=== PATIENT | male | born 1955 | race African-American/Black ===

== ENCOUNTER 2024-03-13 18:49 | Inpatient (IN) | payer OTHER, MEDICARE ==
[2024-03-13 20:27] VITALS: BMI 21.3
[2024-03-13 21:43] LABS: Troponin I 0.164 ng/mL (< 0.028)
[2024-03-13] MEDS ORDERED: Ondansetron ODT 4 MG TAB PO PRN (22:19)
[2024-03-13] MEDS ORDERED: Ondansetron PF 4 MG/2 ML Vial IVP PRN (22:19)
[2024-03-13] MEDS ORDERED: Acetaminophen 325 MG TAB PO PRN (22:19)
[2024-03-13] MEDS ORDERED: Nitroglycerin 0.4 MG TAB (25 Tab Bottle) SL PRN (22:19)
[2024-03-13] MEDS ORDERED: Vancomycin Diaylsis Sliding Scale (Wt 71-99) FS SCH (23:00)
[2024-03-14 00:32] LABS: #Basophils 0.03 10x3/uL (0.0-0.2); %Basophils 0.3 % (0.0-1.0); %Eosinophils 1.4 % (0.0-10.0); %Lymphocytes 22.1 % (21.0-51.0); %Monocytes 9.8 % (0.0-10.0); %Neutrophils 66.1 % (42.0-75.0); Hematocrit 35.3 % (42.0-52.0); Mean Corpuscular Volume 88.3 fL (78.0-98.0); Mean Platelet Volume 11.4 fL (7.4-10.4); Platelet Count 194 10x3/uL (130-400); RBC Distribution Width 15.5 % (11.5-14.5)
[2024-03-14 00:44] LABS: A1c 89.411 g/dL; Hb (HGBA1c) 3074.409 umol/L; Hemoglobin A1c 4.8 % (4.0-6.0)
[2024-03-14 00:47] LABS: Anion Gap 20 mmol/L (10-20); BUN (Urea Nitrogen) 22 mg/dL (8.4-25.7); Calc. Creatinine Clearance 8 mL/min (70-130); Calcium 10.3 mg/dL (7.8-10.44); Carbon Dioxide 23 mmol/L (23-31); Cardiac Risk 3.5 (Less than 4.5); Chloride 94 mmol/L (98-107); Cholesterol 142 mg/dl (< 200 Desired); Estimated GFR 6; Glucose 86 mg/dL (80-115); HDL Cholesterol 41 mg/dL (>60 Neg Risk); LDL Cholesterol, Calculated 84 mg/dL; Potassium 4.3 mmol/L (3.5-5.1); Sodium 133 mmol/L (136-145); Triglycerides 83 mg/dL (Less than 150)
[2024-03-14] MEDS: Lorazepam 2 MG/ML VIAL SLOW IVP SCH (01:35)
[2024-03-14 05:14] LABS: Troponin I 0.223 ng/mL (< 0.028)
[2024-03-14] MEDS: Famotidine 20 MG TAB PO SCH (08:21)
[2024-03-14] MEDS ORDERED: Vancomycin 1 GM in Premix 1 BAG IVPB SCH (09:00)
[2024-03-14] MEDS ORDERED: Aspirin 81 mg Enteric Coated Tablet PO SCH (09:00)
[2024-03-14] MEDS: Aspirin Chewable 81 MG TAB PO SCH (09:02)
[2024-03-14] MEDS: Heparin 5,000 UNITS/ML VIAL SC SCH (09:02)
[2024-03-14] MEDS: Famotidine/PF 20 mg/2ml Vial SLOW IVP SCH (09:02)
[2024-03-14] MEDS: hydrALAZINE 20 MG/ML VIAL SLOW IVP PRN (10:38)
[2024-03-14 12:38] LABS: HBSAB Concentration 29.92 mIU/mL; HBsAg Index 0.29 S/CO (0-0.99); Hep B Core Total Ab NONREACTIVE (NonReactive); Hep B Core Total Index 0.13 S/CO (0-0.79); Hep B Surf AB REACTIVE (NonReactive); Hep B Surf Ag NONREACTIVE S/CO (NonReactive); Hep C IgG Ab NONREACTIVE S/CO (NonReactive); Hep C Index 0.07 S/CO (0-0.79)
[2024-03-14 14:38] LABS: Critical Call Chem Troponin I 2NO.MM4; Troponin I 0.255 ng/mL (< 0.028)
[2024-03-14] MEDS: Acetaminophen 650 MG Suppository PR PRN (14:43)
[2024-03-14] MEDS: Cefepime 1 GM in Sodium Chloride 0.9% 100 ML IVPB SCH (14:43)
[2024-03-14] MEDS: Metoprolol Tartrate 5 MG (5 mL) VIAL IVP SCH ×2 (18:27→22:32)
[2024-03-14] MEDS: Atorvastatin Calcium 40 MG TAB PO SCH (22:03)
[2024-03-14] MEDS: Ketorolac Tromethamine 30 MG (1 mL) VIAL IVP SCH (23:17)
[2024-03-14] MEDS: Sodium Chloride 0.9% 500 ML IV SCH (23:18)
[2024-03-15] MEDS: Labetalol HCl 100 MG/20 ML VIAL SLOW IVP PRN (02:07)
[2024-03-15 05:07] LABS: Anion Gap 24 mmol/L (10-20); BUN (Urea Nitrogen) 41 mg/dL (8.4-25.7); Calc. Creatinine Clearance 6 mL/min (70-130); Calcium 9.8 mg/dL (7.8-10.44); Carbon Dioxide 20 mmol/L (23-31); Chloride 97 mmol/L (98-107); Estimated GFR 4; Glucose 83 mg/dL (80-115); Potassium 4.6 mmol/L (3.5-5.1); Sodium 136 mmol/L (136-145)
[2024-03-15 05:08] LABS: CRP,High Sensitivity (Inhouse) 10.38 mg/dL (< or = 0.5)
[2024-03-15 05:10] LABS: Hematocrit 33.4 % (42.0-52.0); Hemoglobin 11.6 g/dL (14.0-18.0); Mean Corpuscular HGB CONC 34.7 g/dL (32.0-36.0); Mean Corpuscular Hemoglobin 29.7 pg (27.0-31.0); Mean Corpuscular Volume 85.4 fL (78.0-98.0); Mean Platelet Volume 12.4 fL (7.4-10.4); Platelet Count 134 10x3/uL (130-400); RBC Distribution Width 15.6 % (11.5-14.5); Red Blood Cell (RBC) Count 3.91 mill/uL (4.70-6.10)
[2024-03-15 05:27] LABS: Anisocytosis MARKED = >30 cells HPF (0-5); Band 2 % (5-11); Lymphocytes 20 % (21-51); Macrocytosis MODERATE=16-30 cells HPF (0-5); Monocytes 15 % (0-10); Neutrophil 63 % (42-75); Ovalocytes SLIGHT = 2-5 cells HPF (0-1); Platelet Adequacy Comment Platelets Normal; Polychromasia SLIGHT = 2-3 cells HPF (0-2); Schistocytes SLIGHT = 2-5 cells HPF (0-1); Vacuoles MODERATE
[2024-03-15] MEDS: Famotidine 20 MG TAB PO SCH (09:41)
[2024-03-15] MEDS: Famotidine/PF 20 mg/2ml Vial SLOW IVP SCH (09:44)
[2024-03-15] MEDS: cloNIDine 0.2mg/24 Hour PATCH TD SCH (09:45)
[2024-03-15 10:12] VITALS: BMI 21.3
[2024-03-15 11:00] LABS: Vancomycin, Trough 15.7 ug/mL
[2024-03-15] MEDS: Nitroglycerin 2% Ointment 1 INCH/1 GM Packet TOP SCH (18:16)
[2024-03-15] MEDS: Cefepime 1 GM in Sodium Chloride 0.9% 100 ML IVPB SCH (18:23)
[2024-03-15] MEDS: Vancomycin HCl 750 MG in Sodium Chloride 0.9% 250 ML 250 ML IVPB SCH (21:16)
[2024-03-15] MEDS: Scopolamine 1 mg/72 hour Patch TD SCH (21:33)
[2024-03-16 04:57] LABS: #Basophils 0.04 10x3/uL (0.0-0.2); %Basophils 0.4 % (0.0-1.0); %Eosinophils 4.2 % (0.0-10.0); %Monocytes 13.8 % (0.0-10.0); %Neutrophils 65.3 % (42.0-75.0); Hematocrit 31.9 % (42.0-52.0); Hemoglobin 10.9 g/dL (14.0-18.0); Mean Corpuscular HGB CONC 34.2 g/dL (32.0-36.0); Mean Corpuscular Hemoglobin 29.4 pg (27.0-31.0); Mean Platelet Volume 12.5 fL (7.4-10.4); Platelet Count 164 10x3/uL (130-400); RBC Distribution Width 15.1 % (11.5-14.5); Red Blood Cell (RBC) Count 3.71 mill/uL (4.70-6.10)
[2024-03-16 05:22] LABS: Anion Gap 21 mmol/L (10-20); BUN (Urea Nitrogen) 26 mg/dL (8.4-25.7); Calc. Creatinine Clearance 10 mL/min (70-130); Calcium 9.4 mg/dL (7.8-10.44); Carbon Dioxide 24 mmol/L (23-31); Chloride 98 mmol/L (98-107); Estimated GFR 8; Glucose 90 mg/dL (80-115); Potassium 3.9 mmol/L (3.5-5.1); Sodium 139 mmol/L (136-145)
[2024-03-16] MEDS: cloNIDine 0.3mg/24 Hour PATCH TD SCH (08:35)
[2024-03-16] MEDS: levETIRAcetam 500 MG (5 mL) VIAL SLOW IVP SCH ×2 (14:26→21:06)
[2024-03-16] MEDS ORDERED: Glucagon 1 MG/ML KIT IM PRN (18:39)
[2024-03-16] MEDS ORDERED: Insulin Lispro 100 UNIT/ML 10 ML VIAL SC PRN (18:39)
[2024-03-16] MEDS ORDERED: Dextrose 50% Abboject 50 ML SYRINGE SLOW IVP PRN (18:39)
[2024-03-16] MEDS ORDERED: Dextrose 5% in Water 1,000 ML IV PRN (18:39)
[2024-03-16] MEDS: Cefepime 0.5 GM, Admixture Fee 1 EACH in Sodium Chloride 0.9% 100 ML IVPB SCH (20:02)
[2024-03-16] MEDS: Morphine 2 MG/ML VIAL SLOW IVP SCH (21:05)
[2024-03-17 04:50] LABS: #Basophils 0.03 10x3/uL (0.0-0.2); %Basophils 0.4 % (0.0-1.0); %Eosinophils 10.6 % (0.0-10.0); %Lymphocytes 20.1 % (21.0-51.0); %Monocytes 18.1 % (0.0-10.0); %Neutrophils 50.5 % (42.0-75.0); Hematocrit 35.4 % (42.0-52.0); Hemoglobin 11.6 g/dL (14.0-18.0); Mean Corpuscular HGB CONC 32.8 g/dL (32.0-36.0); Mean Corpuscular Hemoglobin 29.5 pg (27.0-31.0); Mean Corpuscular Volume 90.1 fL (78.0-98.0); Mean Platelet Volume 13.2 fL (7.4-10.4); Platelet Count 161 10x3/uL (130-400); RBC Distribution Width 14.9 % (11.5-14.5); Red Blood Cell (RBC) Count 3.93 mill/uL (4.70-6.10)
[2024-03-17 04:56] LABS: Anion Gap 19 mmol/L (10-20); BUN (Urea Nitrogen) 22 mg/dL (8.4-25.7); Calc. Creatinine Clearance 11 mL/min (70-130); Calcium 9.8 mg/dL (7.8-10.44); Carbon Dioxide 26 mmol/L (23-31); Chloride 101 mmol/L (98-107); Estimated GFR 9; Glucose 82 mg/dL (80-115); Potassium 4.2 mmol/L (3.5-5.1); Sodium 142 mmol/L (136-145)
[2024-03-17 09:41] LABS: Vancomycin, Trough 16.8 ug/mL
[2024-03-17] MEDS: hydrALAZINE 20 MG/ML VIAL SLOW IVP SCH (10:48)
[2024-03-17] MEDS: Vancomycin HCl 750 MG in Sodium Chloride 0.9% 250 ML 250 ML IVPB SCH (16:31)
[2024-03-17] MEDS: Dextrose 5 % And 0.9 % NaCl 1,000 ML IV SCH (18:20)
[2024-03-17] MEDS: SODIUM CHLORIDE 0.9% IVPB SCH (18:37)
[2024-03-17] MEDS: ACYCLOVIR SODIUM IVPB SCH (18:37)
[2024-03-17] MEDS: Ipratropium/Albuterol 3 ML NEB NEB SCH (18:44)
[2024-03-18 04:59] LABS: Anion Gap 21 mmol/L (10-20); BUN (Urea Nitrogen) 19 mg/dL (8.4-25.7); Calc. Creatinine Clearance 13 mL/min (70-130); Calcium 9.9 mg/dL (7.8-10.44); Carbon Dioxide 23 mmol/L (23-31); Chloride 103 mmol/L (98-107); Estimated GFR 10; Glucose 88 mg/dL (80-115); Potassium 3.9 mmol/L (3.5-5.1); Sodium 143 mmol/L (136-145)
[2024-03-18 05:03] LABS: #Basophils 0.03 10x3/uL (0.0-0.2); %Basophils 0.4 % (0.0-1.0); %Eosinophils 8.9 % (0.0-10.0); %Lymphocytes 16.6 % (21.0-51.0); %Monocytes 21.7 % (0.0-10.0); %Neutrophils 52.1 % (42.0-75.0); Hematocrit 38.9 % (42.0-52.0); Hemoglobin 12.3 g/dL (14.0-18.0); Mean Corpuscular HGB CONC 31.6 g/dL (32.0-36.0); Mean Corpuscular Hemoglobin 29.2 pg (27.0-31.0); Mean Corpuscular Volume 92.4 fL (78.0-98.0); Platelet Count 144 10x3/uL (130-400); RBC Distribution Width 15.2 % (11.5-14.5); Red Blood Cell (RBC) Count 4.21 mill/uL (4.70-6.10)
[2024-03-18 05:19] LABS: Thyroid Stimulating Hormone 0.7111 uIU/mL (0.35-4.94)
[2024-03-18 07:02] LABS: Free T4 (Free Thyroxine) 1.11 ng/dL (0.70-1.48)
[2024-03-18] MEDS: Pantoprazole 40 MG VIAL IVP SCH (08:51)
[2024-03-18] MEDS: cefTRIAXone\\ROCEPHIN 2 GM in Sodium Chloride 0.9% 100 ML IVPB SCH (22:25)
[2024-03-19] MEDS: Labetalol HCl 100 MG/20 ML VIAL SLOW IVP SCH (01:25)
[2024-03-19 06:31] LABS: #Basophils 0.03 10x3/uL (0.0-0.2); %Basophils 0.3 % (0.0-1.0); %Lymphocytes 9.5 % (21.0-51.0); %Monocytes 10.2 % (0.0-10.0); %Neutrophils 77.6 % (42.0-75.0); Hematocrit 34.3 % (42.0-52.0); Hemoglobin 11.5 g/dL (14.0-18.0); Mean Corpuscular HGB CONC 33.5 g/dL (32.0-36.0); Mean Corpuscular Hemoglobin 29.4 pg (27.0-31.0); Mean Corpuscular Volume 87.7 fL (78.0-98.0); Mean Platelet Volume 12.5 fL (7.4-10.4); Platelet Count 160 10x3/uL (130-400); RBC Distribution Width 15.4 % (11.5-14.5); Red Blood Cell (RBC) Count 3.91 mill/uL (4.70-6.10)
[2024-03-19 06:50] LABS: Anion Gap 22 mmol/L (10-20); BUN (Urea Nitrogen) 28 mg/dL (8.4-25.7); Calc. Creatinine Clearance 9 mL/min (70-130); Calcium 10.3 mg/dL (7.8-10.44); Carbon Dioxide 21 mmol/L (23-31); Chloride 105 mmol/L (98-107); Estimated GFR 7; Glucose 113 mg/dL (80-115); Potassium 3.7 mmol/L (3.5-5.1); Sodium 144 mmol/L (136-145)
[2024-03-19 07:43] LABS: Vancomycin, Trough 21.6 ug/mL
[2024-03-19 07:57] VITALS: TEMP 97.4
[2024-03-19 11:50] VITALS: BP 184/72
[2024-03-19] MEDS ORDERED: Labetalol HCl 100 MG/20 ML VIAL SLOW IVP PRN (12:22)
[2024-03-19] MEDS: Lorazepam 2 MG/ML VIAL SLOW IVP SCH (12:30)
[2024-03-19] MEDS: OLANZapine 10 MG VIAL IM SCH (14:10)
[2024-03-19] MEDS: Sterile Water 10 ML VIAL FS SCH (14:25)
[2024-03-19] MEDS: Vancomycin HCl 500 MG in Sodium Chloride 0.9% 100 ML IVPB SCH (17:22)
[2024-03-19] MEDS ORDERED: Nitroglycerin 2% Ointment 1 INCH/1 GM Packet TOP SCH (21:00)
== END 2024-03-19 15:15 | disposition expired | DRG 871 ==
LOC: SURG A 20:07 → 2NO 22:14 → T4-B 03-18 17:49
PROVIDERS: ADMIT Family Medicine; ATTEND Family Medicine
PROC: 3E03329 Introduction of Other Anti-infective into Peripheral Vein, Percutaneous Approach (ICD-10-PCS; 2024-03-13)
PROC: 4A00X4Z Measurement of Central Nervous Electrical Activity, External Approach (ICD-10-PCS; principal; 2024-03-14)
PROC: 5A1D70Z Performance of Urinary Filtration, Intermittent, Less than 6 Hours Per Day (ICD-10-PCS; 2024-03-17)
PROC: 5A12012 Performance of Cardiac Output, Single, Manual (ICD-10-PCS; 2024-03-19)
DX: A41.9 Sepsis, unspecified organism (principal); G03.9 Meningitis, unspecified; G93.41 Metabolic encephalopathy; N18.6 End stage renal disease; I12.0 Hypertensive chronic kidney disease with stage 5 chronic kidney disease or end stage renal disease; I67.89 Other cerebrovascular disease; Z66 Do not resuscitate; Z51.5 Encounter for palliative care; K04.7 Periapical abscess without sinus; K02.9 Dental caries, unspecified; I44.0 Atrioventricular block, first degree; I46.9 Cardiac arrest, cause unspecified; F17.220 Nicotine dependence, chewing tobacco, uncomplicated; F10.90 Alcohol use, unspecified, uncomplicated; F17.210 Nicotine dependence, cigarettes, uncomplicated; D63.1 Anemia in chronic kidney disease; Z99.2 Dependence on renal dialysis; Z79.899 Other long term (current) drug therapy; Z98.890 Other specified postprocedural states; R79.89 Other specified abnormal findings of blood chemistry
CPT/HCPCS: 36415; 36416; 70450; 80048; 80061; 80202; 82140; 83036; 83880; 84145; 84439; 84443; 84481; 84484; 85025; 86141; 86704; 86706; 86803; 87040; 87081; 87340; 90935; 93005; 93010; 93306; 94640; 95700; 95711; 95819; G0257; J0133; J0360; J0692; J0696; J1644; J1885; J1953; J2060; J2272; J2470; J3370; J3490; J7030; J7042; J7050; J7620